=== PATIENT | female | born 1970 | race Hispanic/Latino ===

== ENCOUNTER 2017-02-08 13:30 | Outpatient (CLI) | payer BC ==
--- NOTE | 2017-02-08 15:02 | ULT ---
THYROID ULTRASOUND: Indication: History of thyroid nodules. FINDINGS: The right thyroid lobe measures 4.6 x 1.5 x 2.2 cm. The left thyroid lobe measures 4.3 x 1.1 x 2.2 c m. The thyroid isthmus measures 0.3 cm. There are multiple small nodules seen within both thyroid lo bes. One of the largest is seen within the superior pole of the right thyroid lobe measuring 0.7 x 0 .6 x 0.6 cm. This lesion is solid and is heterogeneous in appearance but is fairly well circumscribe d. Two additional smaller nodules are seen within the lower pole of the right thyroid lobe. Within t he left thyroid lobe there are three separate nodules. One of the largest is seen within the superio r pole of the left thyroid lobe and is predominately hypoechoic and well circumscribed measuring 6 x 5 x 2 mm. Additional smaller 4 mm nodule is seen within the superior pole and a 4 mm nodule is seen within the lower pole. IMPRESSION: Multinodular goiter. Recommend a follow up ultrasound in one year to document stability. POS: BENEDICTO
--- NOTE | 2017-02-08 15:17 | ULT ---
LEFT SOFT TISSUE NECK ULTRASOUND: INDICATION: Palpable abnormality of the left neck within the left lateral mid submandibular region. FINDINGS: Within the left lateral neck in the region of interest, there is a 1.9 x 0.6 x 0.7 cm lymph node. N o additional focal sonographic abnormality is noted. IMPRESSION: A lymph node is seen within the left lateral neck measuring up to 1.9 x 0.6 cm. This does not appea r pathologically enlarged. Would recommend clinical followup. If there remains an issue as a persi stent palpable abnormality, soft tissue neck CT would be recommended. POS: BECKIE
== END 2017-02-08 13:31 | disposition home or self-care (01) ==
LOC: ULT 13:30
PROVIDERS: ATTEND Nurse Practitioner Family
DX: J02.9 Acute pharyngitis, unspecified (principal); R59.0 Localized enlarged lymph nodes; M54.2 Cervicalgia; E11.65 Type 2 diabetes mellitus with hyperglycemia; I10 Essential (primary) hypertension; K04.7 Periapical abscess without sinus; E04.2 Nontoxic multinodular goiter
CPT/HCPCS: 76536; 76999

== ENCOUNTER 2017-06-28 21:39 | Emergency (ER) | payer BC ==
--- NOTE | 2017-06-28 23:36 | CT ---
CT HEAD NONCONTRAST: 06/28/17 HISTORY: Headache. COMPARISON: 03/14/08. FINDINGS: There is no evidence of acute intracranial hemorrhage or infarct. The ventricles appear normal in siz e, shape and position. There is no mass effect or shift of midline structures. Visualized paranasal sinuses remain well aerated. IMPRESSION: No acute intracranial abnormalities are demonstrated on noncontrast CT head. POS: H
[2017-06-29] MEDS ORDERED: Prochlorperazine 10 MG/2 ML VIAL ONE (00:04)
[2017-06-29] MEDS ORDERED: diphenhydrAMINE 50 MG/ML VIAL ONE (00:04)
[2017-06-29] MEDS ORDERED: Ketorolac Tromethamine 30 MG/ML VIAL ONE (00:04)
== END 2017-06-29 01:32 | disposition home or self-care (01) ==
LOC: SCSER 21:39
DX: R51 Headache (principal); E00.9 Congenital iodine-deficiency syndrome, unspecified; E78.5 Hyperlipidemia, unspecified
CPT/HCPCS: 70450; 96365; 96375; J0780; J1200; J1885

== ENCOUNTER 2018-03-02 17:36 | Emergency (ER) | payer BC | END 2018-03-02 18:13 | disposition home or self-care (01) | LOC: SCSER 17:36 | DX: S90.121A Contusion of right lesser toe(s) without damage to nail, initial encounter (principal); E11.9 Type 2 diabetes mellitus without complications; E78.5 Hyperlipidemia, unspecified; W22.8XXA Striking against or struck by other objects, initial encounter; Y99.0 Civilian activity done for income or pay | CPT/HCPCS: 99283 ==

== ENCOUNTER 2018-10-30 19:04 | Emergency (ER) | payer BC ==
--- NOTE | 2018-10-30 20:00 | RAD ---
EXAM: 4 views of the left knee HISTORY: Knee pain after fall COMPARISON: None FINDINGS: No knee effusion is seen. There is no evidence of acute fracture or dislocation. No signifi cant degenerative changes are seen. No soft tissue swelling is present. IMPRESSION: No evidence of acute osseous abnormality.
--- NOTE | 2018-10-30 20:00 | RAD ---
EXAM: 2 views of the left tibia/fibula HISTORY: Leg pain after fall COMPARISON: None FINDINGS: There is no evidence of acute fracture or dislocation. No soft tissue swelling is seen. No degenerative changes are seen in the knee or ankle. IMPRESSION: No evidence of acute osseous abnormality.
== END 2018-10-30 20:20 | disposition home or self-care (01) ==
LOC: SCSER 19:04
DX: S80.02XA Contusion of left knee, initial encounter (principal); S80.811A Abrasion, right lower leg, initial encounter; E11.9 Type 2 diabetes mellitus without complications; E78.5 Hyperlipidemia, unspecified; W18.09XA Striking against other object with subsequent fall, initial encounter; Z79.84 Long term (current) use of oral hypoglycemic drugs

== ENCOUNTER 2019-06-24 11:55 | Emergency (ER) | payer BC, SELFPAY ==
[2019-06-24 12:35] LABS: Bilirubin Negative (Negative); Blood, Urine Negative (Negative); Clarity Clear (Clear); Glucose, Urine (Dipstick) Greater than 1000 mg/dL (Negative); Leukocyte 250 Leu/uL (Negative); Nitrite 2+ (Negative); Protein, Urine (Dipstick) Negative (Neg-Trace); Squamous Epithelial 0-3 HPF (0-3); Urobilinogen Normal mg/dL (Less than 2); WBC/HPF Greater than 50 HPF (0-3)
[2019-06-24 12:56] LABS: Bacteria/HPF 2+ HPF (None Seen)
[2019-06-24 12:57] LABS: Transitional Epithelial 0-3 HPF (None Seen)
== END 2019-06-24 13:24 | disposition home or self-care (01) ==
LOC: ERS 11:55
DX: N39.0 Urinary tract infection, site not specified (principal); B37.3 Candidiasis of vulva and vagina; E11.9 Type 2 diabetes mellitus without complications; E78.00 Pure hypercholesterolemia, unspecified; F41.9 Anxiety disorder, unspecified; Z79.84 Long term (current) use of oral hypoglycemic drugs
CPT/HCPCS: 81003; 81015; 87077; 87086; 87186; 99283

== ENCOUNTER 2020-04-25 10:19 | Emergency (ER) | payer SELFPAY ==
[2020-04-25 11:57] LABS: #Lymphocytes 0.8 thou/uL (1.20-3.40); #Monocytes 0.2 thou/uL (0.11-0.59); %Basophils 0.2 % (0.0-1.0); %Eosinophils 0.1 % (0.0-10.0); %Lymphocytes 13.2 % (21.0-51.0); %Neutrophils 82.4 % (42.0-75.0); Hemoglobin 15.3 g/dL (12.0-16.0); Mean Corpuscular HGB CONC 33.1 g/dL (32.0-36.0); Mean Corpuscular Hemoglobin 29.8 pg (27.0-31.0); Mean Platelet Volume 9.2 fL (7.4-10.4); Platelet Count 189 thou/uL (130-400); RBC Distribution Width 11.8 % (11.5-14.5); Red Blood Cell (RBC) Count 5.13 mill/uL (4.20-5.40); White Blood Cell (WBC) Count 6.1 thou/uL (4.8-10.8)
[2020-04-25] MEDS ORDERED: Ondansetron PF 4 MG/2 ML Vial ONE (12:07)
[2020-04-25] MEDS ORDERED: Ketorolac Tromethamine 30 MG/ML VIAL ONE (12:07)
[2020-04-25 12:16] LABS: ALT (SGPT) 37 U/L (8-55); AST (SGOT) 34 U/L (5-34); Albumin 4.2 g/dL (3.5-5.0); Alkaline Phosphatase 100 U/L (40-110); Anion Gap 18 mmol/L (10-20); BUN (Urea Nitrogen) 15 mg/dL (7.0-18.7); Bilirubin, Total 0.3 mg/dL (0.2-1.2); Calc. Creatinine Clearance 0 mL/min (70-130); Calcium 8.9 mg/dL (7.8-10.44); Carbon Dioxide 21 mmol/L (22-29); Chloride 102 mmol/L (98-107); Globulin 3.8 g/dL (2.4-3.5); Glucose 308 mg/dL (70-105); Sodium 137 mmol/L (136-145)
== END 2020-04-25 13:10 | disposition home or self-care (01) ==
LOC: ERS 10:19
DX: U07.1 COVID-19 (principal); E11.9 Type 2 diabetes mellitus without complications; E78.00 Pure hypercholesterolemia, unspecified; Z79.84 Long term (current) use of oral hypoglycemic drugs
CPT/HCPCS: 36415; 80053; 85025; 96374; 96375; J1885; J2405

== ENCOUNTER 2020-04-28 08:54 | Emergency (ER) | payer SELFPAY ==
--- NOTE | 2020-04-28 09:36 | RAD ---
XR Chest 1 View Portable History: Cough and difficulty breathing Comparison: Radiograph 2013 Findings: Moderate perihilar peripheral opacities. No pneumothorax. No effusion. Cardiac silhouette a nd mediastinal contours are within normal limits. No acute osseous abnormality. Right upper quadrant surgical clips. Impression: Commonly reported imaging findings of Covid-19 pneumonia.
[2020-04-28] MEDS ORDERED: Dexamethasone 4 mg/ml Vial ONE (09:47)
[2020-04-28 10:02] LABS: #Lymphocytes 0.6 thou/uL (1.20-3.40); #Monocytes 0.2 thou/uL (0.11-0.59); #Neutrophils 6.1 thou/uL (1.40-6.50); %Basophils 0.3 % (0.0-1.0); %Eosinophils 0.1 % (0.0-10.0); %Monocytes 3.3 % (0.0-10.0); %Neutrophils 87.3 % (42.0-75.0); Hemoglobin 14.1 g/dL (12.0-16.0); Mean Corpuscular HGB CONC 32.7 g/dL (32.0-36.0); Mean Corpuscular Hemoglobin 29.1 pg (27.0-31.0); Mean Platelet Volume 8.6 fL (7.4-10.4); Platelet Count 229 thou/uL (130-400); RBC Distribution Width 11.7 % (11.5-14.5); Red Blood Cell (RBC) Count 4.85 mill/uL (4.20-5.40)
[2020-04-28 10:25] LABS: ALT (SGPT) 39 U/L (8-55); AST (SGOT) 46 U/L (5-34); Albumin 3.8 g/dL (3.5-5.0); Alkaline Phosphatase 88 U/L (40-110); Anion Gap 17 mmol/L (10-20); BUN (Urea Nitrogen) 15 mg/dL (9.8-20.1); Bilirubin, Total 0.5 mg/dL (0.2-1.2); CK (CPK) 72 U/L (29-168); Calc. Creatinine Clearance 0 mL/min (70-130); Calcium 8.7 mg/dL (7.8-10.44); Carbon Dioxide 21 mmol/L (22-29); Chloride 99 mmol/L (98-107); Globulin 3.7 g/dL (2.4-3.5); Glucose 351 mg/dL (70-105); Lipase 51 U/L (8-78); Potassium 3.3 mmol/L (3.5-5.1); Protein, Total 7.5 g/dL (6.0-8.3); Sodium 134 mmol/L (136-145)
[2020-04-28] MEDS ORDERED: Insulin Regular 300 UNITS/3 ML VIAL ONE (11:01)
--- NOTE | 2020-04-28 11:12 | CT ---
CTA Angio Chest W WO Con History: Cough and difficult to breathing Comparison: Chest radiograph same day Findings: CT angiogram chest performed after the intravenous ministration of contrast. 3-D rendering provided. No proximal segmental pulmonary arterial filling defect. No pericardial effusion. Reactive mediastina l lymph nodes. Extensive perihilar peripheral opacities with dense consolidation in the lung bases. Sternum and manubrium are intact. Thoracic spine is intact. No acute displaced rib fracture. Limited upper abdomen evaluation is unremarkable. Impression: 1. No pulmonary embolism. 2. Commonly reported imaging findings of COVID-19 pneumonia.
[2020-04-28] MEDS ORDERED: Iopamidol-370 76% 500 ML 1 ML ONE (13:20)
--- NOTE | 2020-05-02 15:22 | EKG ---
Test Reason : Blood Pressure : / mmHG Vent. Rate : 090 BPM Atrial Rate : 090 BPM P-R Int : 132 ms QRS Dur : 076 ms QT Int : 364 ms P-R-T Axes : 008 019 044 degrees QTc Int : 445 ms Normal sinus rhythm Normal ECG Confirmed by DARIUSZ STARK, SUDHEER ([id number]), commercial production editor HALLEY TOVAR ([id number]) on 05/02/2020 3:21:50 PM Referred By: Confirmed By:SUDHEER ARZOLA MD
== END 2020-04-28 11:37 | disposition home or self-care (01) ==
LOC: ERS 08:54
DX: U07.1 COVID-19 (principal); E11.9 Type 2 diabetes mellitus without complications; E78.5 Hyperlipidemia, unspecified; Z79.84 Long term (current) use of oral hypoglycemic drugs; Z79.899 Other long term (current) drug therapy
CPT/HCPCS: 36415; 71045; 71275; 80053; 82550; 83605; 83690; 83880; 84484; 85025; 85379; 87040; 93005; 96374; 96375; J1100; J1815; Q9967

== ENCOUNTER 2021-09-04 15:12 | Emergency (ER) | payer SELFPAY ==
[2021-09-04 16:00] LABS: #Basophils 0.1 thou/uL (0.0-0.2); #Eosinphils 0.2 thou/uL (0.0-0.7); #Lymphocytes 2.5 thou/uL (1.20-3.40); #Monocytes 0.4 thou/uL (0.11-0.59); %Basophils 0.6 % (0.0-1.0); %Eosinophils 1.8 % (0.0-10.0); %Lymphocytes 27.2 % (21.0-51.0); %Monocytes 3.9 % (0.0-10.0); %Neutrophils 66.6 % (42.0-75.0); Hemoglobin 14.1 g/dL (12.0-16.0); Mean Corpuscular HGB CONC 33.2 g/dL (32.0-36.0); Mean Corpuscular Hemoglobin 30.5 pg (27.0-31.0); Mean Corpuscular Volume 91.9 fL (78.0-98.0); Mean Platelet Volume 9.6 fL (7.4-10.4); Platelet Count 247 thou/uL (130-400); RBC Distribution Width 11.8 % (11.5-14.5); Red Blood Cell (RBC) Count 4.64 mill/uL (4.20-5.40)
[2021-09-04 16:08] LABS: ALT (SGPT) 41 U/L (8-55); AST (SGOT) 34 U/L (5-34); Albumin 4.4 g/dL (3.5-5.0); Alkaline Phosphatase 94 U/L (40-110); Anion Gap 16 mmol/L (10-20); BUN (Urea Nitrogen) 14 mg/dL (9.8-20.1); Bilirubin, Total 0.3 mg/dL (0.2-1.2); Calc. Creatinine Clearance 0 mL/min (70-130); Calcium 9.6 mg/dL (7.8-10.44); Carbon Dioxide 25 mmol/L (22-29); Chloride 102 mmol/L (98-107); Globulin 3.1 g/dL (2.4-3.5); Glucose 304 mg/dL (70-105); Lipase 30 U/L (8-78); Protein, Total 7.5 g/dL (6.0-8.3); Sodium 139 mmol/L (136-145)
[2021-09-04] MEDS ORDERED: Ketorolac Tromethamine 30 MG/ML VIAL ONE (16:18)
[2021-09-04] MEDS ORDERED: Ondansetron PF 4 MG/2 ML Vial ONE (16:18)
[2021-09-04 17:51] LABS: Bacteria/HPF None Seen HPF (None Seen); Bilirubin Negative (Negative); Blood, Urine 2+ (Negative); Clarity Clear (Clear); Glucose, Urine (Dipstick) Greater than 1000 mg/dL (Negative); Ketone, Urine Trace mg/dL (Negative); Leukocyte Negative Leu/uL (Negative); Nitrite Negative (Negative); Protein, Urine (Dipstick) Negative (Neg-Trace); RBC/HPF 0-3 HPF (0-3); Specific Gravity, Urine 1.011 (1.002-1.036); Squamous Epithelial 0-3 HPF (0-3); Urobilinogen Normal mg/dL (Less than 2); WBC/HPF 0-3 HPF (0-3); pH, Urine 5.5 (5.0-9.0)
== END 2021-09-04 18:32 | disposition home or self-care (01) ==
LOC: ERS 15:12
DX: N28.89 Other specified disorders of kidney and ureter (principal); E11.9 Type 2 diabetes mellitus without complications; E78.5 Hyperlipidemia, unspecified; Z79.84 Long term (current) use of oral hypoglycemic drugs
CPT/HCPCS: 36415; 74176; 80053; 81003; 81015; 83690; 85025; 93005; 96374; 96375; J1885; J2405